=== PATIENT | female | born 1975 | race Asian ===

== ENCOUNTER 2018-09-29 22:32 | Emergency (ER) | payer SELFPAY ==
--- NOTE | 2018-09-30 00:13 | ER Document Report ---
ED General - General Chief Complaint: Breast Problem Stated Complaint: LEFT BREAST PROBLEM Time Seen by Provider: 09/30/18 00:10 Notes: 43-year-old female presents with change in shape of her left breast implant noticed tonight. Painless. No trauma. Likely saline implant 13 years ago in [place], no local plastic surgeon. No nipple discharge. TRAVEL OUTSIDE OF THE [place] IN LAST 30 DAYS: No Past Medical History - Social History Smoking Status: Never Smoker Chew tobacco use (# tins/day): No Frequency of alcohol use: Occasional Drug Abuse: None Family History: None Patient has suicidal ideation: No Patient has homicidal ideation: No Renal/ Medical History: Denies: Hx Peritoneal Dialysis Review of Systems - Review of Systems Notes: REVIEW OF SYSTEMS GEN: Denies fever, chills, weight loss ENT: Denies sore throat, nasal discharge, ear pain EYES: Denies blurry vision, eye pain, discharge CV: Denies chest pain, palpitations, edema RESP: Denies cough, shortness of breath, wheezing GI: Denies abdominal pain, nausea, vomiting, diarrhea MSK: Denies joint pain/swelling, edema, SKIN: Denies rash, skin lesions LYMPH: Denies swollen glands/lymph nodes NEURO: Denies headache, focal weakness or numbness, dizziness PSYCH: Denies depression, suicidal or homicidal ideation PHYSICAL EXAMINATION General: No acute distress, well-nourished Head: Atraumatic, normocephalic ENT: Mouth normal, oropharynx moist, no exudates or tonsillar enlargement Eyes: Conjunctiva normal, pupils equal, lids normal Neck: No JVD, supple, no guarding CVS: Normal rate, regular rhythm, no murmurs Resp: No resp distress, equal and normal breath sounds bilaterally. The left breast is slightly droopier than the right, there is no clear breast implant palpable. There is no tenderness. The right breast implant is soft and clearly palpable on. GI: Nondistended, soft, no tenderness to palpation, no rebound or guarding Ext: No deformities, no edema, normal range of motion in upper and lower ext Back: No CVA or midline TTP Skin: No rash, warm Lymphatic: No lymphadeopathy noted Neuro: Awake, alert. Face symmetric. GCS 15. Physical Exam - Vital signs Vitals: Temp Pulse Resp BP Pulse Ox 98.7 F 92 16 147/90 H 99 09/29/18 22:51 09/29/18 22:51 09/29/18 22:51 09/29/18 22:51 09/29/18 22:51 Course - Re-evaluation Re-evalutation: 09/30/18 00:15 Breast implant rupture not infected. Safe for outpatient follow-up. Atraumatic. Referred to plastic surgery in [place]. I have discussed with the patient there likely diagnosis, aftercare plan, follow-up plans and my usual and customary return precautions. They verbalized understanding of this. - Vital Signs Vital signs: Temp Pulse Resp BP Pulse Ox 98.7 F 92 16 147/90 H 99 09/29/18 22:51 09/29/18 22:51 09/29/18 22:51 09/29/18 22:51 09/29/18 22:51 Discharge - Discharge Clinical Impression: Ruptured left breast implant Qualifiers: Encounter type: initial encounter Qualified Code(s): T85.43XA - Leakage of breast prosthesis and implant, initial encounter Condition: Good Disposition: HOME, SELF-CARE Instructions: Breast Lumps ([facility]) Additional Instructions: Breast implant has broken but this is not an emergency unless you develop fever redness swelling or discharge from your nipple. Please contact the plastic surgeon, to discuss future options including possible surgery. Referrals: [facility] LOUIE MD [NO LOCAL MD] - Follow up as needed
[2018-09-30 00:35] VITALS: BP 144/80
== END 2018-09-30 00:35 | disposition home or self-care (01) ==
LOC: ER 22:32
DX: T85.43XA Leakage of breast prosthesis and implant, initial encounter (principal); X58.XXXA Exposure to other specified factors, initial encounter
CPT/HCPCS: 99283